=== PATIENT | male | born 1975 | race Caucasian/White ===

== ENCOUNTER 2016-11-18 14:17 | Inpatient (IN) | payer OTHER ==
[2016-11-18 15:39] VITALS: BMI 28.3
--- NOTE | 2016-11-18 18:06 | HP ---
CIWA Score - CIWA Score Nausea/Vomitin-Mild Nausea/No Vomiting Muscle Tremors: 4-Moderate,w/Arms Extend Anxiety: 4-Mod. Anxious/Guarded Agitation: 4-Moderately Restless Paroxysmal Sweats: 1-Minimal Palms Moist Orientation: 3-Disoriented Date>2 days Tacttile Disturbances: 0-None Auditory Disturbances: 0-None Visual Disturbances: 0-None Headache: 0-None Present CIWA-Ar Total Score: 17 Admission ROS S - HPI Chief Complaint: WITHDRAWAL SX Allergies/Adverse Reactions: Allergies Allergy/AdvReac Type Severity Reaction Status Date / Time No Known Allergies Allergy Verified 11/18/16 16:46 History of Present Illness: 41 YEARS OLD MALE WITH LONG HISTORY OF ALCOHOL XANAX NICOTINE DEPENDENCE HAS ASTHMA AND DEPRESSION ANXIETY IS ADMITTED TO DETOX Exam Limitations: No Limitations - Ebola screening Have you traveled outside of the country in the last 21 days: No Have you had contact with anyone from an Ebola affected area: No Have you been sick,other than usual withdrawal symptoms: No Do you have a fever: No - Review of Systems Constitutional: Chills, Changes in sleep, Weight Stable EENT: reports: No Symptoms Reported Respiratory: reports: Cough, SOB with Exertion Cardiac: reports: No Symptoms Reported GI: reports: Nausea, Poor Fluid Intake, Abdominal cramping : reports: No Symptoms Reported Musculoskeletal: reports: Back Pain, Joint Pain, Muscle Pain Integumentary: reports: No Symptoms Reported Neuro: reports: Seizure (2011 XANAX WITHDRAWAL), Tremors Endocrine: reports: No Symptoms Reported Hematology: reports: No Symptoms Reported Psychiatric: reports: Judgement Intact, Anxious, Depressed Other Systems: Reviewed and Negative Patient History - Patient Medical History Hx Anemia: No Hx Asthma: No Hx Chronic Obstructive Pulmonary Disease (COPD): No Hx Cancer: No Hx Cardiac Disorders: No Hx Congestive Heart Failure: No Hx Hypertension: No Hx Hypercholesterolemia: No Hx Pacemaker: No HX Cerebrovascular Accident: No Hx Seizures: No Hx Dementia: No Hx Diabetes: No Hx Gastrointestinal Disorders: No Hx Liver Disease: No Hx Genitourinary Disorders: No Hx Sexually Transmitted Disorders: No Hx Renal Disease (ESRD): No Hx Thyroid Disease: No Hx Human Immunodeficiency Virus (HIV): No (2013 NEGATIVE) Hx Hepatitis C: No Hx Depression: Yes Hx Suicide Attempt: Yes (Tried to overdose more than 10 yrs ago. 2006) Hx Bipolar Disorder: No Hx Schizophrenia: No - Patient Surgical History Past Surgical History: Yes Hx Neurologic Surgery: No Hx Cataract Extraction: No Hx Cardiac Surgery: No Hx Lung Surgery: No Hx Breast Surgery: No Hx Breast Biopsy: No Hx Abdominal Surgery: No Hx Appendectomy: No Hx Cholecystectomy: No Hx Genitourinary Surgery: No Hx Orthopedic Surgery: Yes (left ankle IN 2011) Anesthesia Reaction: No - PPD History Previous Implant?: Yes Documented Results: Negative w/proof Implanted On Prior [facility] Admission?: Yes Date: 03/28/16 Results: 0 MM PPD to be Administered?: No - Smoking Cessation Smoking history: Current every day smoker Have you smoked in the past 12 months: Yes Aproximately how many cigarettes per day: 8 Cigars Per Day: 0 Hx Chewing Tobacco Use: No Initiated information on smoking cessation: Yes 'Breaking Loose' booklet given: 11/18/16 - Substance & Tx. History Hx Alcohol Use: Yes Hx Substance Use: Yes Substance Use Type: Alcohol, Tranquilizers Hx Substance Use Treatment: Yes - Substances Abused Alprazolam (Xanax) Route: Oral Frequency: Daily Amount used: 10MG Age of first use: 35 Date of Last Use: 11/17/16 Alcohol Route: Oral Frequency: Daily Amount used: 2 6PKS [id number] Age of first use: 17 Date of Last Use: 11/15/16 Marijuana/Hashish Route: Smoking Frequency: Daily Amount used: $20 Age of first use: 18 Date of Last Use: 11/17/16 Family Disease History - Family Disease History Family Disease History: Diabetes: Mother (), Heart Disease: Mother, CA: Father (ALCOHOL,DSA,), Other: Father, Mother, Brother (ALCOHOL,DSA), Sister (ALCOHOL,DSA) Admission Physical Exam S - Vital Signs Vital Signs: Vital Signs - 24 hr 11/18/16 15:36 Temperature 96.7 F L Pulse Rate 71 Respiratory 18 Rate Blood Pressure 117/76 - Physical General Appearance: Yes: Nourished, Appropriately Dressed, Mild Distress, Tremorous, Irritable, Sweating, Anxious HEENTM: Yes: Hearing grossly Normal, Normal ENT Inspection, Normocephalic, Normal Voice Respiratory: Yes: Chest Non-Tender, Lungs Clear, Normal Breath Sounds, No Respiratory Distress, No Accessory Muscle Use Neck: Yes: Supple, Trachea in good position Breast: Yes: Breasts Symetrical Cardiology: Yes: Regular Rhythm, Regular Rate, S1, S2 Abdominal: Yes: Non Tender, Soft Genitourinary: Yes: Within Normal Limits Back: Yes: Normal Inspection Musculoskeletal: Yes: full range of Motion, Gait Steady, Back pain, Muscle Pain (LEFT ANKLE) Extremities: Yes: Normal Range of Motion, Non-Tender, Tremors Neurological: Yes: Alert, Motor Strength 5/5, Normal Response, Depressed Affect Integumentary: Yes: Warm Lymphatic: Yes: Within Normal Limits - Diagnostic (1) Asthma Current Visit: Yes Status: Acute Qualifiers: Asthma severity: mild intermittent Asthma complication type: with status asthmaticus Qualified Code(s): J45.22 - Mild intermittent asthma with status asthmaticus (2) Alcohol dependence with uncomplicated withdrawal Current Visit: Yes Status: Acute (3) Sedative, hypnotic or anxiolytic dependence with withdrawal, uncomplicated Current Visit: Yes Status: Acute (4) Nicotine dependence Current Visit: Yes Status: Acute Qualifiers: Nicotine product type: cigarettes Substance use status: in withdrawal Qualified Code(s): F17.213 - Nicotine dependence, cigarettes, with withdrawal (5) Anxiety associated with depression Current Visit: Yes Status: Suspected Comment: ERIK Cleared for Admission [facility] - Detox or Rehab [facility] Level of Care: Medically Managed Detox Regimen/Protocol: Valium [facility] Breath Alcohol Content Breath Alcohol Content: 0 Urine Drug Screen - Results Drug Screen Negative: No Urine Drug Screen Results: THC-Marijuana, BZO-Benzodiazepines
[2016-11-18] MEDS ORDERED: MAGNESIUM CITRATE 300 ML BOTTLE PO PRN (18:12)
[2016-11-18] MEDS ORDERED: MENTHOL/PHENOL 1 EACH UD MM PRN (18:12)
[2016-11-18] MEDS ORDERED: guaiFENesin/D-METHORPHAN HB 10 ML UNIT-DOSE CUPS PO PRN (18:12)
[2016-11-18] MEDS ORDERED: hydrOXYzine PAMOATE 50 MG CAPSULE (FP) PO PRN (18:12)
[2016-11-18] MEDS ORDERED: IBUPROFEN 400 MG TABLET (FP) PO PRN (18:12)
[2016-11-18] MEDS ORDERED: MAGNESIUM HYDROX 2400MG/30ML ORAL SUSPENSION 30 ML CUP PO PRN (18:12)
[2016-11-18] MEDS ORDERED: P-EPHED 60MG/TRIPROLIDI 2.5MG TABLET PO PRN (18:12)
[2016-11-18] MEDS ORDERED: MAG HYDROX/AL HYDROX/SIMETH 30 ML UNIT-DOSE CUP PO PRN (18:12)
[2016-11-18] MEDS ORDERED: LOPERAMIDE HCL 2 MG CAPSULE PO PRN (18:12)
[2016-11-18] MEDS ORDERED: ACETAMINOPHEN 325 MG TABLET (FP) PO PRN (18:12)
[2016-11-18] MEDS ORDERED: diphenhydrAMINE HCL 50 MG CAPSULE PO PRN (18:12)
[2016-11-18] MEDS ORDERED: NICOTINE POLACRILEX 2 MG GUM BC PRN (18:12)
[2016-11-18] MEDS ORDERED: ALBUTEROL SO4 6.7 GM HFA INHALER IH PRN (18:19)
[2016-11-18] MEDS ORDERED: diazePAM 5 MG TABLET PO ONE (18:30)
[2016-11-18] MEDS: THIAMINE HCL 100 MG TABLET (FP) PO SCH (22:43)
[2016-11-18] MEDS: diazePAM 5 MG TABLET PO SCH (22:44)
[2016-11-19] MEDS: diazePAM 5 MG TABLET PO SCH ×3 (06:10→21:44)
[2016-11-19 10:02] LABS: ALBUMIN 4.3 g/dl (3.4-5.0); ALK PHOS 100 U/L (45-117); ANION GAP 10 (8-16); BILIRUBIN,TOTAL 0.5 mg/dL (0.2-1.0); CALCIUM 9.3 mg/dL (8.5-10.1); CO2 28 mmol/L (21-32); GLUCOSE,RANDOM 113 mg/dL (74-106); SGOT/AST 19 U/L (15-37); SGPT/ALT 29 U/L (12-78); TOT PROT 7.2 g/dl (6.4-8.2)
[2016-11-19 10:03] LABS: MCH 30.1 pg (25.7-33.7); MCHC 33.3 g/dl (32.0-35.9); MEAN CELL VOLUME 90.2 fl (80-96); MEAN PLT VOLUME 10.3 fl (7.5-11.1); PLATELET COUNT 166 K/MM3 (134-434); RDW 13.7 % (11.9-15.9); WHITE BLOOD COUNT 8.7 K/mm3 (4.0-10.0)
--- NOTE | 2016-11-19 10:15 | PN ---
S CIWA - CIWA Score Nausea/Vomitin-No Nausea/No Vomiting Muscle Tremors: 4-Moderate,w/Arms Extend Anxiety: 3 Agitation: 4-Moderately Restless Paroxysmal Sweats: 3 Orientation: 0-Oriented Tacttile Disturbances: 0-None Auditory Disturbances: 0-None Visual Disturbances: 0-None Headache: 1-Very Mild CIWA-Ar Total Score: 15 [facility] Progress Note (SOAP) Subjective: low back pain sweats shakes agitation interrupted sleep Objective: 11/19/16 10:18 Vital Signs Temperature 98 F 11/19/16 10:00 Pulse Rate 57 L 11/19/16 10:00 Respiratory Rate 18 11/19/16 10:00 Blood Pressure 126/84 11/19/16 10:00 O2 Sat by Pulse Oximetry (%) labs pending awake/alert ambulating no acute distress Assessment: 11/19/16 10:18 withdrawal sx Plan: continue detox increase fluids motrin/tylenol prn lidocaine patch labs pending
[2016-11-19] MEDS: diazePAM 5 MG TABLET PO PRN ×2 (10:59→17:47)
[2016-11-19] MEDS: NICOTINE 14 MG/24 HOURS TOPICAL PATCH TD SCH (10:59)
[2016-11-19] MEDS: PRENATAL VITAMINS W/ FOLIC ACID TABLET (FP) PO SCH (10:59)
[2016-11-19] MEDS: LIDOCAINE 5% TOPICAL PATCH TP SCH (11:15)
--- NOTE | 2016-11-19 12:27 | CONSULT ---
[facility] Psychiatric Consult - Data Date of interview: 11/19/16 Admission source: [facility] Identifying data: First admission to [facility] for this 41 y/o male seeking detox treatment for alcohol,xanax and marijuana dependence.Patient is single,a father of one,domiciled,uneployed and supported on [facility] benefits. Substance Abuse History: - Smoking Cessation. Smoking history: Current every day smoker. Have you smoked in the past 12 months: Yes. Aproximately how many cigarettes per day: 8. Cigars Per Day: 0. Hx Chewing Tobacco Use: No. Initiated information on smoking cessation: Yes. 'Breaking Loose' booklet given : 11/18/16. - Substance & Tx. History. Hx Alcohol Use: Yes. Hx Substance Use : Yes. Substance Use Type: Alcohol, Tranquilizers. Hx Substance Use Treatment : Yes. - Substances Abused. Alprazolam (Xanax). Route: Oral. Frequency: Daily. Amount used: 10MG. Age of first use: 35. Date of Last Use: 11/17/16. Alcohol. Route: Oral. Frequency: Daily. Amount used: 2 6PKS [id number]. Age of first use: 17. Date of Last Use: 11/15/16. Marijuana/Hashish. Route : Smoking. Frequency: Daily. Amount used: $20. Age of first use: 18. Date of Last Use: 11/17/16. Confirmed by patient. Medical History: History of bronchial asthma. Psychiatric History: Patient reports a past history of psychiatric hospitalizations at [facility].Diagnosed with MDD.Mr Pitt gets his outpatient psychiatric services at the [facility] in the [place].Prescribed zyprexa 5 mg/hs + ambien 10 mg/hs + xanax (dose not recalled) .Noted self-report of a suicide attempt via overdose with medications in 2006 ( precipitated by the of maternal grandmother). Physical/Sexual Abuse/Trauma History: Patient denies. Additional Comment: Urine Drug Screen Results: THC-Marijuana, BZO- Benzodiazepines.Noted. Mental Status Exam - Mental Status Exam Alert and Oriented to: Time, Place, Person Cognitive Function: Good Patient Appearance: Well Groomed Mood: Hopeful, Euthymic Affect: Appropriate, Normal Range Patient Behavior: Fatigued, Appropriate, Cooperative Speech Pattern: Clear, Appropriate Voice Loudness: Normal Thought Process: Goal Oriented Thought Disorder: Not Present Hallucinations: Denies Suicidal Ideation: Denies Homicidal Ideation: Denies Insight/Judgement: Poor Sleep: Poorly, Difficulty falling asleep Appetite: Good Muscle strength/Tone: Normal Gait/Station: Normal Psychiatric Findings - Problem List ([place] 1, 2,3) (1) Alcohol dependence with uncomplicated withdrawal Current Visit: Yes Status: Acute (2) Sedative, hypnotic or anxiolytic dependence with withdrawal, uncomplicated Current Visit: Yes Status: Acute (3) Cannabis dependence Current Visit: Yes Status: Acute (4) Nicotine dependence Current Visit: Yes Status: Acute Qualifiers: Nicotine product type: cigarettes Substance use status: in withdrawal Qualified Code(s): F17.213 - Nicotine dependence, cigarettes, with withdrawal (5) Bipolar disorder Current Visit: Yes Status: Chronic (6) Asthma Current Visit: Yes Status: Chronic Qualifiers: Asthma severity: mild intermittent Asthma complication type: with status asthmaticus Qualified Code(s): J45.22 - Mild intermittent asthma with status asthmaticus (7) Insomnia Current Visit: Yes Status: Chronic - Initial Treatment Plan Initial Treatment Plan: Psychoeducation.Detoxification.Medications : zyprexa 5 mg po hs + ambien 10 mg po hs.Side effects/benefits of each drug are discussed with the patient.He agrees with plan of care.Observation.Doses verified through review of pharmacy claims (filled scripts for both drugs @ [facility] on 10/31/16).
--- NOTE | 2016-11-19 13:43 | EKG ---
Test Reason : Blood Pressure : / mmHG Vent. Rate : 052 BPM Atrial Rate : 052 BPM P-R Int : 150 ms QRS Dur : 086 ms QT Int : 450 ms P-R-T Axes : 076 066 036 degrees QTc Int : 418 ms SINUS BRADYCARDIA POSSIBLE LEFT ATRIAL ENLARGEMENT NONSPECIFIC ST ABNORMALITY ABNORMAL ECG NO PREVIOUS ECGS AVAILABLE Confirmed by HEIDY VEGA, SOCRATES ([id number]) on 11/19/2016 1:42:47 PM Referred By: Confirmed By:SOCRATES MOODY MD
[2016-11-19] MEDS: OLANZapine 5 MG TABLET PO SCH (21:44)
[2016-11-19] MEDS: THIAMINE HCL 100 MG TABLET (FP) PO SCH (21:44)
[2016-11-19] MEDS: ZOLPIDEM TARTRATE 10 MG TABLET (PARK CARE ONLY) PO PRN (21:44)
[2016-11-20] MEDS: LIDOCAINE 5% TOPICAL PATCH TP SCH (10:12)
[2016-11-20] MEDS: PRENATAL VITAMINS W/ FOLIC ACID TABLET (FP) PO SCH (10:13)
[2016-11-20] MEDS: NICOTINE 14 MG/24 HOURS TOPICAL PATCH TD SCH (10:13)
[2016-11-20] MEDS: diazePAM 5 MG TABLET PO SCH ×2 (10:13→22:09)
--- NOTE | 2016-11-20 10:46 | PN ---
S CIWA - CIWA Score Nausea/Vomitin Muscle Tremors: 2 Anxiety: 2 Agitation: 2 Paroxysmal Sweats: 3 Orientation: 0-Oriented Tacttile Disturbances: 2-Mild Itch/Numbness/Burn Auditory Disturbances: 0-None Visual Disturbances: 0-None Headache: 0-None Present CIWA-Ar Total Score: 13 S Progress Note (SOAP) Subjective: interrupted sleep, sweats, lbp, left ankle pain Objective: 11/20/16 10:44 Vital Signs Temperature 98.4 F 11/20/16 10:00 Pulse Rate 73 11/20/16 10:00 Respiratory Rate 18 11/20/16 10:00 Blood Pressure 125/75 11/20/16 10:00 O2 Sat by Pulse Oximetry (%) Laboratory Tests 11/19/16 11/19/16 11/19/16 06:00 06:00 06:00 WBC 8.7 RBC 4.86 Hgb 14.6 D Hct 43.8 MCV 90.2 MCHC 33.3 RDW 13.7 Plt Count 166 MPV 10.3 Sodium 143 Potassium 4.5 Chloride 105 Carbon Dioxide 28 Anion Gap 10 BUN 17 D Creatinine 1.0 D Creat Clearance w eGFR > 60 Random Glucose 113 H Calcium 9.3 Total Bilirubin 0.5 D AST 19 D ALT 29 Alkaline Phosphatase 100 D Total Protein 7.2 Albumin 4.3 RPR Titer Nonreactive pt aox3 lying in bed Assessment: 11/20/16 10:45 withdrawal sx;s lbp lt ankle pain Plan: cont. detox increase fluids analgesic balm cont lidocaine patch
[2016-11-20] MEDS: diazePAM 5 MG TABLET PO PRN (17:13)
[2016-11-20] MEDS: OLANZapine 5 MG TABLET PO SCH (22:08)
[2016-11-20] MEDS: THIAMINE HCL 100 MG TABLET (FP) PO SCH (22:08)
[2016-11-20] MEDS: METHYL SALICYLATE/MENTHOL OINT 30 GM TUBE TP SCH (22:08)
[2016-11-20] MEDS: ZOLPIDEM TARTRATE 10 MG TABLET (PARK CARE ONLY) PO PRN (22:08)
[2016-11-21] MEDS: diazePAM 5 MG TABLET PO SCH ×2 (10:12→22:05)
[2016-11-21] MEDS: PRENATAL VITAMINS W/ FOLIC ACID TABLET (FP) PO SCH (10:12)
--- NOTE | 2016-11-21 10:22 | PN ---
B[facility] Progress Note (SOAP) Subjective: sweats headache Objective: 11/21/16 10:22 Vital Signs Temperature 97 F L 11/21/16 06:48 Pulse Rate 69 11/21/16 06:48 Respiratory Rate 16 11/21/16 06:48 Blood Pressure 116/72 11/21/16 06:48 O2 Sat by Pulse Oximetry (%) awake/alert ambulating no acute distress Assessment: 11/21/16 10:22 withdrawal sx Plan: continue detox increase fluids tyelnol/motrin prn d/c in am
[2016-11-21] MEDS: NICOTINE 14 MG/24 HOURS TOPICAL PATCH TD SCH (11:50)
[2016-11-21] MEDS: LIDOCAINE 5% TOPICAL PATCH TP SCH (11:50)
[2016-11-21] MEDS: METHYL SALICYLATE/MENTHOL OINT 30 GM TUBE TP SCH ×2 (11:53→22:05)
[2016-11-21] MEDS: diazePAM 5 MG TABLET PO PRN (13:54)
[2016-11-21 20:25] LABS: URINE APPEARANCE CLEAR; URINE BILIRUBIN NEGATIVE (NEGATIVE); URINE BLOOD NEGATIVE (NEGATIVE); URINE COLOR YELLOW; URINE GLUCOSE (UA) NEGATIVE (NEGATIVE); URINE KETONE NEGATIVE (NEGATIVE); URINE LEUK ESTERASE NEGATIVE (NEGATIVE); URINE NITRITE NEGATIVE (NEGATIVE); URINE PROTEIN NEGATIVE (NEGATIVE); URINE UROBILINOGEN NEGATIVE E.U./dl (0.2-1.0)
[2016-11-21] MEDS: ZOLPIDEM TARTRATE 10 MG TABLET (PARK CARE ONLY) PO PRN (22:05)
[2016-11-21] MEDS: OLANZapine 5 MG TABLET PO SCH (22:05)
[2016-11-21] MEDS: THIAMINE HCL 100 MG TABLET (FP) PO SCH (22:05)
[2016-11-22 06:26] VITALS: TEMP 97.5
--- NOTE | 2016-11-22 08:21 | DS ---
[facility] Detox Discharge Summary Admission Date: 11/18/16 Discharge Date: 11/22/16 - History Present History: Alcohol Dependence, Cannabis Dependence, Sedative Dependence - Physical Exam Results Vital Signs: Vital Signs Temperature 97.5 F L 11/22/16 06:00 Pulse Rate 50 L 11/22/16 06:00 Respiratory Rate 18 11/22/16 06:00 Blood Pressure 95/60 11/22/16 06:00 O2 Sat by Pulse Oximetry (%) - Treatment Hospital Course: Detox Protocol Followed, Detoxed Safely, Responded well, Discharged Condition Good, Rehab Referral Accepted - Medication Discharge Medications: Ambulatory Orders Olanzapine [Zyprexa -] 5 mg PO HS #30 tablet 11/19/16 - Diagnosis (1) Alcohol dependence with uncomplicated withdrawal Current Visit: Yes Status: Chronic (2) Cannabis dependence Current Visit: Yes Status: Chronic (3) Nicotine dependence Current Visit: Yes Status: Chronic Qualifiers: Nicotine product type: cigarettes Substance use status: uncomplicated Qualified Code(s): F17.210 - Nicotine dependence, cigarettes, uncomplicated (4) Sedative, hypnotic or anxiolytic dependence with withdrawal, uncomplicated Current Visit: Yes Status: Chronic (5) Asthma Current Visit: Yes Status: Chronic Qualifiers: Asthma severity: mild intermittent Asthma complication type: uncomplicated Qualified Code(s): J45.20 - Mild intermittent asthma, uncomplicated (6) Bipolar disorder Current Visit: Yes Status: Chronic (7) Insomnia Current Visit: Yes Status: Chronic (8) Anxiety associated with depression Current Visit: Yes Status: Suspected - AMA Did Patient Leave Against Medical Advice: No
[2016-11-22] MEDS ORDERED: diazePAM 5 MG TABLET PO SCH (10:00)
[2016-11-22 10:28] VITALS: BP 118/88; PULSE 73
== END 2016-11-22 09:50 | disposition home or self-care (01) | DRG 897 ==
LOC: YASAS 14:17 → Y6N 17:15
PROVIDERS: ADMIT Internal Medicine Addiction Medicine; ATTEND Internal Medicine Addiction Medicine
PROC: HZ2ZZZZ Detoxification Services for Substance Abuse Treatment (ICD-10-PCS; principal; 2016-11-18)
DX: F13.230 Sedative, hypnotic or anxiolytic dependence with withdrawal, uncomplicated (principal); F10.230 Alcohol dependence with withdrawal, uncomplicated; F12.20 Cannabis dependence, uncomplicated; F17.210 Nicotine dependence, cigarettes, uncomplicated; F31.9 Bipolar disorder, unspecified; F41.8 Other specified anxiety disorders; J45.20 Mild intermittent asthma, uncomplicated; G47.00 Insomnia, unspecified; M54.5 Low back pain; M25.572 Pain in left ankle and joints of left foot; Z91.5 Personal history of self-harm
CPT/HCPCS: 36415; 80053; 81003; 85027; 86593; 93005; 93010

== ENCOUNTER 2016-12-27 10:34 | Inpatient (IN) | payer OTHER ==
[2016-12-27 12:03] VITALS: BMI 26.6
--- NOTE | 2016-12-27 14:10 | HP ---
CIWA Score - CIWA Score Nausea/Vomitin-No Nausea/No Vomiting Muscle Tremors: 4-Moderate,w/Arms Extend Anxiety: 3 Agitation: 4-Moderately Restless Paroxysmal Sweats: 3 Orientation: 0-Oriented Tacttile Disturbances: 0-None Auditory Disturbances: 0-None Visual Disturbances: 0-None Headache: 1-Very Mild CIWA-Ar Total Score: 15 Admission ROS [facility] - HPI Chief Complaint: i need help. Allergies/Adverse Reactions: Allergies Allergy/AdvReac Type Severity Reaction Status Date / Time No Known Allergies Allergy Verified 12/27/16 12:09 History of Present Illness: pt is a 41yr old male with a history of xanax and cannabis dependence seeking detox for treatment. Exam Limitations: No Limitations - Ebola screening Have you traveled outside of the country in the last 21 days: No Have you had contact with anyone from an Ebola affected area: No Have you been sick,other than usual withdrawal symptoms: No Do you have a fever: No - Review of Systems Constitutional: Chills, Diaphoresis, Loss of Appetite, Night Sweats EENT: reports: No Symptoms Reported Respiratory: reports: No Symptoms reported, Productive cough Cardiac: reports: No Symptoms Reported GI: reports: Nausea, Poor Appetite, Poor Fluid Intake, Indigestion : reports: No Symptoms Reported Musculoskeletal: reports: Muscle Pain Integumentary: reports: Flushing, Sweating Neuro: reports: Headache, Tingling, Tremors Endocrine: reports: Excessive Sweating, Flushing, Intolerance to Cold, Intolerance to Heat Hematology: reports: No Symptoms Reported Psychiatric: reports: Mood/Affect Appropiate, Orientated x3, Agitated, Anxious Other Systems: Reviewed and Negative Patient History - Patient Medical History Hx Anemia: No Hx Asthma: Yes Hx Chronic Obstructive Pulmonary Disease (COPD): No Hx Cancer: No Hx Cardiac Disorders: No Hx Congestive Heart Failure: No Hx Hypertension: No Hx Hypercholesterolemia: No Hx Pacemaker: No HX Cerebrovascular Accident: No Hx Seizures: No Hx Dementia: No Hx Diabetes: No Hx Gastrointestinal Disorders: No Hx Liver Disease: No Hx Genitourinary Disorders: No Hx Sexually Transmitted Disorders: No Hx Renal Disease (ESRD): No Hx Thyroid Disease: No Hx Human Immunodeficiency Virus (HIV): No (2013 NEGATIVE) Hx Hepatitis C: No Hx Depression: Yes Hx Suicide Attempt: No Hx Bipolar Disorder: Yes Hx Schizophrenia: No - Patient Surgical History Past Surgical History: Yes Hx Neurologic Surgery: No Hx Cataract Extraction: No Hx Cardiac Surgery: No Hx Lung Surgery: No Hx Breast Surgery: No Hx Breast Biopsy: No Hx Abdominal Surgery: No Hx Appendectomy: No Hx Cholecystectomy: No Hx Genitourinary Surgery: No Hx Orthopedic Surgery: Yes (left ankle IN 2010) Anesthesia Reaction: No - PPD History Previous Implant?: Yes Documented Results: Negative w/proof Implanted On Prior [facility] Admission?: Yes Date: 03/28/16 Results: 0 mm PPD to be Administered?: No - Reproductive History Patient is a Female of Child Bearing Age (11 -55 yrs old): No - Smoking Cessation Smoking history: Current every day smoker Have you smoked in the past 12 months: Yes Aproximately how many cigarettes per day: 6 Cigars Per Day: 0 Hx Chewing Tobacco Use: No Initiated information on smoking cessation: Yes 'Breaking Loose' booklet given: 12/27/16 - Substance & Tx. History Hx Alcohol Use: No Hx Substance Use: Yes Substance Use Type: Marijuana, Tranquilizers Hx Substance Use Treatment: No - Substances Abused Xanax Route: Oral Frequency: Daily Amount used: 6-8 mg. Age of first use: 39 Date of Last Use: 12/27/16 Marijuana Route: Smoking Frequency: Daily Amount used: 2-4 blunts Age of first use: 14 Date of Last Use: 12/27/16 Family Disease History - Family Disease History Family Disease History: Diabetes: Mother (), Heart Disease: Mother, CA: Father (ALCOHOL,DSA,), Other: Father, Mother, Brother (ALCOHOL,DSA), Sister (ALCOHOL,DSA) Admission Physical Exam S - Vital Signs Vital Signs: Vital Signs - 24 hr 12/27/16 12:01 Temperature 96 F L Pulse Rate 91 H Respiratory 20 Rate Blood Pressure 140/95 - Physical General Appearance: Yes: Appropriately Dressed, Moderate Distress, Tremorous, Irritable, Sweating, Anxious HEENTM: Yes: Normal Voice Respiratory: Yes: Lungs Clear, Normal Breath Sounds, No Respiratory Distress Neck: Yes: No masses,lesions,Nodules Breast: Yes: Within Normal Limits Cardiology: Yes: Regular Rhythm, Regular Rate, S1, S2 Abdominal: Yes: Normal Bowel Sounds Genitourinary: Yes: Within Normal Limits Back: Yes: Normal Inspection Musculoskeletal: Yes: full range of Motion Extremities: Yes: Normal Inspection, Tremors Neurological: Yes: Fully Oriented, Alert Integumentary: Yes: Normal Color, Diaphoresis Lymphatic: Yes: Within Normal Limits - Diagnostic (1) Asthma Current Visit: Yes Status: Chronic Qualifiers: Asthma severity: mild intermittent Asthma complication type: uncomplicated Qualified Code(s): J45.20 - Mild intermittent asthma, uncomplicated (2) Cannabis dependence Current Visit: Yes Status: Chronic (3) Sedative, hypnotic or anxiolytic dependence with withdrawal, uncomplicated Current Visit: Yes Status: Chronic Cleared for Admission [facility] - Detox or Rehab [facility] Level of Care: Medically Managed Detox Regimen/Protocol: Valium [facility] Breath Alcohol Content Breath Alcohol Content: 0 Urine Drug Screen - Results Drug Screen Negative: No Urine Drug Screen Results: THC-Marijuana, BZO-Benzodiazepines
[2016-12-27] MEDS ORDERED: MAGNESIUM CITRATE 300 ML BOTTLE PO PRN (14:25)
[2016-12-27] MEDS ORDERED: diphenhydrAMINE HCL 50 MG CAPSULE PO PRN (14:25)
[2016-12-27] MEDS ORDERED: hydrOXYzine PAMOATE 50 MG CAPSULE (FP) PO PRN (14:25)
[2016-12-27] MEDS ORDERED: MAGNESIUM HYDROX 2400MG/30ML ORAL SUSPENSION 30 ML CUP PO PRN (14:25)
[2016-12-27] MEDS ORDERED: MENTHOL/PHENOL 1 EACH UD MM PRN (14:25)
[2016-12-27] MEDS ORDERED: MAG HYDROX/AL HYDROX/SIMETH 30 ML UNIT-DOSE CUP PO PRN (14:25)
[2016-12-27] MEDS ORDERED: IBUPROFEN 400 MG TABLET (FP) PO PRN (14:25)
[2016-12-27] MEDS ORDERED: LOPERAMIDE HCL 2 MG CAPSULE PO PRN (14:25)
[2016-12-27] MEDS ORDERED: P-EPHED 60MG/TRIPROLIDI 2.5MG TABLET PO PRN (14:25)
[2016-12-27] MEDS ORDERED: ACETAMINOPHEN 325 MG TABLET (FP) PO PRN (14:25)
[2016-12-27] MEDS ORDERED: guaiFENesin/D-METHORPHAN HB 10 ML UNIT-DOSE CUPS PO PRN (14:25)
[2016-12-27] MEDS ORDERED: NICOTINE POLACRILEX 4 MG GUM BUC PRN (14:25)
[2016-12-27] MEDS ORDERED: diazePAM 5 MG TABLET PO ONE (14:30)
[2016-12-27] MEDS: diazePAM 5 MG TABLET PO SCH ×2 (14:49→22:03)
[2016-12-27] MEDS ORDERED: ALBUTEROL SO4 2.5/IPRATROPIUM 0.5 INH SOL 3 ML VIAL.NEB. NEB PRN (15:19)
[2016-12-27] MEDS ORDERED: ALBUTEROL SO4 2.5/IPRATROPIUM 0.5 INH SOL 3 ML VIAL.NEB. NEB ONE (15:26)
[2016-12-27] MEDS: THIAMINE HCL 100 MG TABLET (FP) PO SCH (22:03)
[2016-12-28] MEDS: diazePAM 5 MG TABLET PO SCH ×3 (06:01→22:03)
[2016-12-28] MEDS: diazePAM 5 MG TABLET PO PRN ×2 (08:50→17:14)
--- NOTE | 2016-12-28 09:14 | EKG ---
Test Reason : Blood Pressure : / mmHG Vent. Rate : 056 BPM Atrial Rate : 056 BPM P-R Int : 144 ms QRS Dur : 088 ms QT Int : 454 ms P-R-T Axes : 053 052 003 degrees QTc Int : 438 ms SINUS BRADYCARDIA WITH SINUS ARRHYTHMIA OTHERWISE NORMAL ECG WHEN COMPARED WITH ECG OF 18-NOV-2016 18:42, NO SIGNIFICANT CHANGE WAS FOUND Confirmed by BRENNON DENTON MD ([id number]) on 12/28/2016 9:14:23 AM Referred By: Confirmed By:BRENNON DENTON MD
[2016-12-28 10:07] LABS: MCH 30.6 pg (25.7-33.7); MCHC 34.5 g/dl (32.0-35.9); MEAN CELL VOLUME 88.6 fl (80-96); MEAN PLT VOLUME 9.7 fl (7.5-11.1); PLATELET COUNT 162 K/MM3 (134-434); RDW 13.1 % (11.9-15.9)
[2016-12-28] MEDS: NICOTINE 21 MG/24 HOURS TOPICAL PATCH TD SCH (10:09)
[2016-12-28] MEDS: PRENATAL VITAMINS W/ FOLIC ACID TABLET (FP) PO SCH (10:09)
[2016-12-28 10:30] LABS: ANION GAP 9 (8-16); BILIRUBIN,TOTAL 0.3 mg/dL (0.2-1.0); CALCIUM 8.8 mg/dL (8.5-10.1); CO2 25 mmol/L (21-32); COCKROFT - GAULT 141.74; CREATININE 0.8 mg/dL (0.7-1.3); GLUCOSE,RANDOM 120 mg/dL (74-106); SGOT/AST 23 U/L (15-37); SGPT/ALT 39 U/L (12-78); TOT PROT 6.7 g/dl (6.4-8.2)
[2016-12-28 10:31] LABS: ALK PHOS 103 U/L (45-117)
--- NOTE | 2016-12-28 14:47 | PN ---
[facility] CIWA - CIWA Score Nausea/Vomitin-No Nausea/No Vomiting Muscle Tremors: 4-Moderate,w/Arms Extend Anxiety: 2 Agitation: 3 Paroxysmal Sweats: 2 Orientation: 0-Oriented Tacttile Disturbances: 2-Mild Itch/Numbness/Burn Auditory Disturbances: 2-Mild Harshness/Frighten Visual Disturbances: 0-None Headache: 3-Moderate CIWA-Ar Total Score: 18 S Progress Note (SOAP) Subjective: Interrupted sleep, Tremors, H/A, Back Ache, Body Aches. Objective: PT. A & O X 3, OBSERVED AMBULATING ON UNIT. PT. DENIES CHEST PAIN. 12/28/16 14:39 Vital Signs Temperature 96.5 F L 12/28/16 10:49 Pulse Rate 86 12/28/16 10:49 Respiratory Rate 16 12/28/16 10:49 Blood Pressure 118/82 12/28/16 10:49 O2 Sat by Pulse Oximetry (%) Laboratory Last Values WBC 10.0 K/mm3 (4.0-10.0) 12/28/16 06:10 RBC 4.56 M/mm3 (4.00-5.60) 12/28/16 06:10 Hgb 13.9 GM/dL (11.7-16.9) 12/28/16 06:10 Hct 40.4 % (35.4-49) 12/28/16 06:10 MCV 88.6 fl (80-96) 12/28/16 06:10 MCHC 34.5 g/dl (32.0-35.9) 12/28/16 06:10 RDW 13.1 % (11.9-15.9) 12/28/16 06:10 Plt Count 162 K/MM3 (134-434) 12/28/16 06:10 MPV 9.7 fl (7.5-11.1) 12/28/16 06:10 Sodium 141 mmol/L (136-145) 12/28/16 06:10 Potassium 3.9 mmol/L (3.5-5.1) 12/28/16 06:10 Chloride 107 mmol/L (98-107) 12/28/16 06:10 Carbon Dioxide 25 mmol/L (21-32) 12/28/16 06:10 Anion Gap 9 (8-16) 12/28/16 06:10 BUN 14 mg/dL (7-18) 12/28/16 06:10 Creatinine 0.8 mg/dL (0.7-1.3) 12/28/16 06:10 Creat Clearance w eGFR > 60 (>60) 12/28/16 06:10 Random Glucose 120 mg/dL (74-106) H 12/28/16 06:10 Calcium 8.8 mg/dL (8.5-10.1) 12/28/16 06:10 Total Bilirubin 0.3 mg/dL (0.2-1.0) D 12/28/16 06:10 AST 23 U/L (15-37) D 12/28/16 06:10 ALT 39 U/L (12-78) D 12/28/16 06:10 Alkaline Phosphatase 103 U/L (45-117) 12/28/16 06:10 Total Protein 6.7 g/dl (6.4-8.2) 12/28/16 06:10 Albumin 4.0 g/dl (3.4-5.0) 12/28/16 06:10 RPR Titer Nonreactive (NONREACTIVE) 12/28/16 06:10 LABS NOTED. Assessment: 12/28/16 14:51 WITHDRAWAL SYMPTOMS. Plan: CONTINUE DETOX. ADVISED PATIENT TO FOLLOW-UP WITH [facility] / REHAB MEDICAL PROVIDER AFTER DISCHARGE FROM DETOX FOR GENERAL MEDICAL ASSESSMENT AND FOR ABNORMAL LAB VALUES.
--- NOTE | 2016-12-28 15:07 | CONSULT ---
[facility] Psychiatric Consult - Data Date of interview: 12/28/16 Admission source: [facility] Identifying data: Readmission to [facility] for this 41 y/o male seeking detox treatment for alcohol,xanax and marijuana dependence.Patient is single,a father of one,domiciled,unemployed and supported on [employer] benefits. Substance Abuse History: - Smoking Cessation. Smoking history: Current every day smoker. Have you smoked in the past 12 months: Yes. Aproximately how many cigarettes per day: 6. Cigars Per Day: 0. Hx Chewing Tobacco Use: No. Initiated information on smoking cessation: Yes. 'Breaking Loose' booklet given : 12/27/16. - Substance & Tx. History. Hx Alcohol Use: No. Hx Substance Use: Yes. Substance Use Type: Marijuana, Tranquilizers. Hx Substance Use Treatment : No. - Substances Abused. Xanax. Route: Oral. Frequency: Daily. Amount used: 6-8 mg. Age of first use: 39. Date of Last Use: 12/27/16. Marijuana. Route: Smoking. Frequency: Daily. Amount used: 2-4 blunts. Age of first use: 14. Date of Last Use: 12/27/16. Confirmed by patient. Medical History: Bronchial asthma. Psychiatric History: History of psychiatric hospitalizations at [facility].Diagnosed with MDD.Mr Pitt gets his outpatient psychiatric services at the [facility] in the [place].Prescribed zyprexa 5 mg/hs + ambien 10 mg/hs + xanax (dose not recalled).Non adherernt to OPD care.History of a suicide attempt via overdose with medications in 2006 (precipitated by the of maternal grandmother). Physical/Sexual Abuse/Trauma History: Patient denies. Mental Status Exam - Mental Status Exam Alert and Oriented to: Time, Place, Person Cognitive Function: Good Patient Appearance: Well Groomed Mood: Hopeful, Euthymic Affect: Appropriate, Normal Range Patient Behavior: Appropriate, Cooperative Speech Pattern: Clear Voice Loudness: Normal Thought Process: Goal Oriented Thought Disorder: Not Present Hallucinations: Denies Suicidal Ideation: Denies Homicidal Ideation: Denies Insight/Judgement: Poor Sleep: Poorly, Difficulty falling asleep Appetite: Good Muscle strength/Tone: Normal Gait/Station: Normal Psychiatric Findings - Problem List ([place] 1, 2,3) (1) Cannabis dependence Current Visit: Yes Status: Acute (2) Sedative, hypnotic or anxiolytic dependence with withdrawal, uncomplicated Current Visit: Yes Status: Acute (3) Nicotine dependence Current Visit: Yes Status: Acute Qualifiers: Nicotine product type: cigarettes Substance use status: uncomplicated Qualified Code(s): F17.210 - Nicotine dependence, cigarettes, uncomplicated (4) Bipolar disorder Current Visit: Yes Status: Chronic (5) Asthma Current Visit: Yes Status: Chronic Qualifiers: Asthma severity: mild intermittent Asthma complication type: uncomplicated Qualified Code(s): J45.20 - Mild intermittent asthma, uncomplicated (6) Insomnia Current Visit: Yes Status: Chronic - Initial Treatment Plan Initial Treatment Plan: Psychoeducation.Detoxification.Medications : zyprexa 5 mg po hs + ambien 10 mg po hs.Patient is made aware of the risk for metabolic syndrome (zyprexa) and parasomnias (ambien).He is in agreement with this careplan.Observation.
[2016-12-28] MEDS: THIAMINE HCL 100 MG TABLET (FP) PO SCH (22:03)
[2016-12-28] MEDS: ZOLPIDEM TARTRATE 5 MG TABLET PO PRN (22:04)
[2016-12-28] MEDS: OLANZapine 5 MG TABLET PO SCH (22:04)
[2016-12-29] MEDS: diazePAM 5 MG TABLET PO PRN ×2 (05:47→17:28)
[2016-12-29] MEDS: PRENATAL VITAMINS W/ FOLIC ACID TABLET (FP) PO SCH (10:22)
[2016-12-29] MEDS: NICOTINE 21 MG/24 HOURS TOPICAL PATCH TD SCH (10:23)
[2016-12-29] MEDS: diazePAM 5 MG TABLET PO SCH ×2 (10:23→22:06)
--- NOTE | 2016-12-29 12:27 | PN ---
S CIWA - CIWA Score Nausea/Vomitin-Mild Nausea/No Vomiting Muscle Tremors: 4-Moderate,w/Arms Extend Anxiety: 4-Mod. Anxious/Guarded Agitation: 3 Paroxysmal Sweats: No Perspiration Orientation: 0-Oriented Tacttile Disturbances: 1-Very Mild Itch/Numbness Auditory Disturbances: 0-None Visual Disturbances: 0-None Headache: 2-Mild CIWA-Ar Total Score: 15 BHS Progress Note (SOAP) Subjective: Nausea, sweating, tremor, interrupted sleep Objective: 12/29/16 12:25 Last Vital Signs Temp Pulse Resp BP Pulse Ox 96.4 F L 81 18 127/88 12/29/16 09:19 12/29/16 09:19 12/29/16 09:19 12/29/16 09:19 Laboratory Tests 12/28/16 12/28/16 12/28/16 06:10 06:10 06:10 WBC 10.0 RBC 4.56 Hgb 13.9 Hct 40.4 MCV 88.6 MCHC 34.5 RDW 13.1 Plt Count 162 MPV 9.7 Sodium 141 Potassium 3.9 Chloride 107 Carbon Dioxide 25 Anion Gap 9 BUN 14 Creatinine 0.8 Creat Clearance w eGFR > 60 Random Glucose 120 H Calcium 8.8 Total Bilirubin 0.3 D AST 23 D ALT 39 D Alkaline Phosphatase 103 Total Protein 6.7 Albumin 4.0 RPR Titer Nonreactive Labs noted: serum glucose 120 Assessment: 12/29/16 12:26 Withdrawal symptoms Noted with hyperglycemia Plan: Continue detox Hyperglycemia: POC glucose testing
[2016-12-29] MEDS: THIAMINE HCL 100 MG TABLET (FP) PO SCH (22:06)
[2016-12-29] MEDS: ZOLPIDEM TARTRATE 5 MG TABLET PO PRN (22:06)
[2016-12-29] MEDS: OLANZapine 5 MG TABLET PO SCH (22:06)
[2016-12-30] MEDS: diazePAM 5 MG TABLET PO PRN ×2 (08:26→13:32)
[2016-12-30] MEDS: NICOTINE 21 MG/24 HOURS TOPICAL PATCH TD SCH (10:12)
[2016-12-30] MEDS: PRENATAL VITAMINS W/ FOLIC ACID TABLET (FP) PO SCH (10:12)
[2016-12-30] MEDS: diazePAM 5 MG TABLET PO SCH ×2 (10:13→22:04)
--- NOTE | 2016-12-30 14:04 | PN ---
[facility]HS Progress Note (SOAP) Subjective: Sweating,interrupted sleep,restless Objective: 12/30/16 14:03 Vital Signs - 8 hr 12/30/16 12/30/16 09:17 13:11 Temperature 98.6 F 98.0 F Pulse Rate 93 H 94 H Respiratory 18 20 Rate Blood Pressure 121/83 135/93 Laboratory Last Values WBC 10.0 K/mm3 (4.0-10.0) 12/28/16 06:10 RBC 4.56 M/mm3 (4.00-5.60) 12/28/16 06:10 Hgb 13.9 GM/dL (11.7-16.9) 12/28/16 06:10 Hct 40.4 % (35.4-49) 12/28/16 06:10 MCV 88.6 fl (80-96) 12/28/16 06:10 MCHC 34.5 g/dl (32.0-35.9) 12/28/16 06:10 RDW 13.1 % (11.9-15.9) 12/28/16 06:10 Plt Count 162 K/MM3 (134-434) 12/28/16 06:10 MPV 9.7 fl (7.5-11.1) 12/28/16 06:10 Sodium 141 mmol/L (136-145) 12/28/16 06:10 Potassium 3.9 mmol/L (3.5-5.1) 12/28/16 06:10 Chloride 107 mmol/L (98-107) 12/28/16 06:10 Carbon Dioxide 25 mmol/L (21-32) 12/28/16 06:10 Anion Gap 9 (8-16) 12/28/16 06:10 BUN 14 mg/dL (7-18) 12/28/16 06:10 Creatinine 0.8 mg/dL (0.7-1.3) 12/28/16 06:10 Creat Clearance w eGFR > 60 (>60) 12/28/16 06:10 Random Glucose 120 mg/dL (74-106) H 12/28/16 06:10 Calcium 8.8 mg/dL (8.5-10.1) 12/28/16 06:10 Total Bilirubin 0.3 mg/dL (0.2-1.0) D 12/28/16 06:10 AST 23 U/L (15-37) D 12/28/16 06:10 ALT 39 U/L (12-78) D 12/28/16 06:10 Alkaline Phosphatase 103 U/L (45-117) 12/28/16 06:10 Total Protein 6.7 g/dl (6.4-8.2) 12/28/16 06:10 Albumin 4.0 g/dl (3.4-5.0) 12/28/16 06:10 RPR Titer Nonreactive (NONREACTIVE) 12/28/16 06:10 labs noted Assessment: 12/30/16 14:03 Withdrawal sx. Plan: Continue detox
[2016-12-30] MEDS: OLANZapine 5 MG TABLET PO SCH (22:04)
[2016-12-30] MEDS: ZOLPIDEM TARTRATE 5 MG TABLET PO PRN (22:04)
[2016-12-30] MEDS: THIAMINE HCL 100 MG TABLET (FP) PO SCH (22:04)
[2016-12-31] MEDS: PRENATAL VITAMINS W/ FOLIC ACID TABLET (FP) PO SCH (09:08)
[2016-12-31] MEDS: NICOTINE 21 MG/24 HOURS TOPICAL PATCH TD SCH (09:09)
--- NOTE | 2016-12-31 09:30 | DS ---
[facility] Detox Discharge Summary Admission Date: 12/27/16 Discharge Date: 12/31/16 - History Present History: Cannabis Dependence, Sedative Dependence Pertinent Past History: Asthma - Physical Exam Results Vital Signs: Vital Signs Temperature 96.1 F L 12/31/16 06:37 Pulse Rate 91 H 12/31/16 06:37 Respiratory Rate 16 12/31/16 06:37 Blood Pressure 136/88 12/31/16 06:37 O2 Sat by Pulse Oximetry (%) Pertinent Admission Physical Exam Findings: Withdrawal sx. Laboratory Last Values WBC 10.0 K/mm3 (4.0-10.0) 12/28/16 06:10 RBC 4.56 M/mm3 (4.00-5.60) 12/28/16 06:10 Hgb 13.9 GM/dL (11.7-16.9) 12/28/16 06:10 Hct 40.4 % (35.4-49) 12/28/16 06:10 MCV 88.6 fl (80-96) 12/28/16 06:10 MCHC 34.5 g/dl (32.0-35.9) 12/28/16 06:10 RDW 13.1 % (11.9-15.9) 12/28/16 06:10 Plt Count 162 K/MM3 (134-434) 12/28/16 06:10 MPV 9.7 fl (7.5-11.1) 12/28/16 06:10 Sodium 141 mmol/L (136-145) 12/28/16 06:10 Potassium 3.9 mmol/L (3.5-5.1) 12/28/16 06:10 Chloride 107 mmol/L (98-107) 12/28/16 06:10 Carbon Dioxide 25 mmol/L (21-32) 12/28/16 06:10 Anion Gap 9 (8-16) 12/28/16 06:10 BUN 14 mg/dL (7-18) 12/28/16 06:10 Creatinine 0.8 mg/dL (0.7-1.3) 12/28/16 06:10 Creat Clearance w eGFR > 60 (>60) 12/28/16 06:10 Random Glucose 120 mg/dL (74-106) H 12/28/16 06:10 Calcium 8.8 mg/dL (8.5-10.1) 12/28/16 06:10 Total Bilirubin 0.3 mg/dL (0.2-1.0) D 12/28/16 06:10 AST 23 U/L (15-37) D 12/28/16 06:10 ALT 39 U/L (12-78) D 12/28/16 06:10 Alkaline Phosphatase 103 U/L (45-117) 12/28/16 06:10 Total Protein 6.7 g/dl (6.4-8.2) 12/28/16 06:10 Albumin 4.0 g/dl (3.4-5.0) 12/28/16 06:10 Urine Color Cancelled 12/27/16 14:00 Urine Appearance Cancelled 12/27/16 14:00 Urine pH Cancelled 12/27/16 14:00 Ur Specific [place] Cancelled 12/27/16 14:00 Urine Protein Cancelled 12/27/16 14:00 Urine Glucose (UA) Cancelled 12/27/16 14:00 Urine Clinitest Cancelled 12/27/16 14:00 Urine Ketones Cancelled 12/27/16 14:00 Urine Blood Cancelled 12/27/16 14:00 Urine Nitrite Cancelled 12/27/16 14:00 Urine Bilirubin Cancelled 12/27/16 14:00 Urine Ictotest Cancelled 12/27/16 14:00 Prot Sulfosalicylic Acd Cancelled 12/27/16 14:00 Urine Urobilinogen Cancelled 12/27/16 14:00 Ur Leukocyte Esterase Cancelled 12/27/16 14:00 RPR Titer Nonreactive (NONREACTIVE) 12/28/16 06:10 labs noted - Treatment Hospital Course: Detox Protocol Followed, Detoxed Safely, Responded well, Discharged Condition Good, Rehab Referral Accepted Patient has Accepted a Rehab Referral to: [facility] - Medication Discharge Medications: Ambulatory Orders Fluoxetine HCl [Prozac -] 10 mg PO DAILY 12/27/16 Olanzapine [Zyprexa -] 5 mg PO HS 12/27/16 Olanzapine [Zyprexa -] 5 mg PO HS #30 tablet 12/28/16 - Diagnosis (1) Cannabis dependence Current Visit: Yes Status: Acute (2) Nicotine dependence Current Visit: Yes Status: Acute Qualifiers: Nicotine product type: cigarettes Substance use status: uncomplicated Qualified Code(s): F17.210 - Nicotine dependence, cigarettes, uncomplicated (3) Sedative, hypnotic or anxiolytic dependence with withdrawal, uncomplicated Current Visit: Yes Status: Acute (4) Asthma Current Visit: Yes Status: Chronic Qualifiers: Asthma severity: mild intermittent Asthma complication type: uncomplicated Qualified Code(s): J45.20 - Mild intermittent asthma, uncomplicated (5) Bipolar disorder Current Visit: Yes Status: Chronic (6) Insomnia Current Visit: Yes Status: Chronic - AMA Did Patient Leave Against Medical Advice: No
[2016-12-31] MEDS ORDERED: diazePAM 5 MG TABLET PO SCH (10:00)
[2016-12-31 17:53] VITALS: BP 117/80; PULSE 115; TEMP 97.5
== END 2016-12-31 18:15 | disposition other institution (70) | DRG 897 ==
LOC: YASAS 10:34 → Y3N 13:57
PROVIDERS: ADMIT Internal Medicine; ATTEND Internal Medicine
PROC: HZ2ZZZZ Detoxification Services for Substance Abuse Treatment (ICD-10-PCS; principal; 2016-12-27)
DX: F13.230 Sedative, hypnotic or anxiolytic dependence with withdrawal, uncomplicated (principal); F12.20 Cannabis dependence, uncomplicated; F17.210 Nicotine dependence, cigarettes, uncomplicated; F31.9 Bipolar disorder, unspecified; J45.20 Mild intermittent asthma, uncomplicated; G47.00 Insomnia, unspecified
CPT/HCPCS: 36415; 80053; 81003; 85027; 86593; 93005; 93010

== ENCOUNTER 2016-12-31 18:01 | Inpatient (IN) | payer OTHER ==
[2016-12-31] MEDS ORDERED: LOPERAMIDE HCL 2 MG CAPSULE PO PRN (20:15)
[2016-12-31] MEDS ORDERED: MAG HYDROX/AL HYDROX/SIMETH 30 ML UNIT-DOSE CUP PO PRN (20:15)
[2016-12-31] MEDS ORDERED: ACETAMINOPHEN 325 MG TABLET (FP) PO PRN (20:15)
[2016-12-31] MEDS ORDERED: guaiFENesin/D-METHORPHAN HB 10 ML UNIT-DOSE CUPS PO PRN (20:15)
[2016-12-31] MEDS ORDERED: NICOTINE POLACRILEX 2 MG GUM BUC PRN (20:15)
[2016-12-31] MEDS ORDERED: NICOTINE 14 MG/24 HOURS TOPICAL PATCH TD PRN (20:15)
[2016-12-31] MEDS ORDERED: P-EPHED 60MG/TRIPROLIDI 2.5MG TABLET PO PRN (20:15)
[2016-12-31] MEDS ORDERED: IBUPROFEN 400 MG TABLET (FP) PO PRN (20:15)
[2016-12-31] MEDS ORDERED: MAGNESIUM HYDROX 2400MG/30ML ORAL SUSPENSION 30 ML CUP PO PRN (20:15)
[2016-12-31] MEDS ORDERED: MENTHOL/PHENOL 1 EACH UD MM PRN (20:15)
[2016-12-31] MEDS ORDERED: MAGNESIUM CITRATE 300 ML BOTTLE PO PRN (20:15)
--- NOTE | 2016-12-31 20:17 | HP ---
[facility] Rehab Assess/Revision - Admission History Admitted to Rehab from: [facility] Date of Admission to Rehab: 12/31/16 - Findings Detox History & Physical reviewed: Yes Concur with findings: Yes Comments/Additional Findings: TRANSFERRED FROM DETOX TO REHAB ADMISSION PER PROTOCOL
[2016-12-31] MEDS: THIAMINE HCL 100 MG TABLET (FP) PO SCH (21:11)
[2016-12-31] MEDS: diphenhydrAMINE HCL 50 MG CAPSULE PO PRN (21:11)
[2016-12-31] MEDS: OLANZapine 5 MG TABLET PO SCH (22:02)
[2017-01-01] MEDS: PRENATAL VITAMINS W/ FOLIC ACID TABLET (FP) PO SCH (09:46)
--- NOTE | 2017-01-01 11:17 | HP ---
Psychiatrist Admission - Data Date of interview: 01/01/17 Admission source: [facility] Identifying data: This is the second [facility] inpatient rehabilitation admission, first to for thsi 41 year old male father of a 22 year old daughter , resding alone , he is unemployed and supported by [employer] benefits. Medical History: Bronchial Astma, smokes 6 cigarettes a day. Psychiatric History: Patient reports was diagnosed as Schizophrenia, paranoid, first psychiatric hospitalization in 2006 following the of his grandmother , states he had his first psychotic episode,with auditory hallucinations, was paranoid and depressed he overdosed with pills and alcohol, admitted to [facility] [place]. Reports about 10 subsequent psychiatric hospitalizations with most recent in 2016 to [facility] [place], he gets psychiatric servises in [facility] outpatient clinic in the [place], he currently on Zyprexa 5 mg po hs, seen by while in detox and continue treatment. Physical/Sexual Abuse/Trauma History: Denies history of abuse. Vital Signs: Vital Signs - 24 hr 01/01/17 01/01/17 03:30 06:41 Temperature 97.3 F L Pulse Rate 92 H Respiratory 18 18 Rate Blood Pressure 124/92 Allergies/Adverse Reactions: Allergies Allergy/AdvReac Type Severity Reaction Status Date / Time No Known Allergies Allergy Verified 12/27/16 12:09 Date of last physical exam: 12/27/16 Concur with the findings of this exam: Yes - Substance Abuse/Tx History Hx Alcohol Use: No Hx Substance Use: Yes Substance Use Type: Marijuana (2-4 blunts daily), Tranquilizers (xanax 6-8 mg daily) Hx Substance Use Treatment: Yes - Admission Criteria Previous failed treatment: Yes Poor recovery environment: Yes Comorbidities: Yes Lacks judgement: Yes Mental Status Exam - Mental Status Exam Alert and Oriented to: Time, Place, Person Cognitive Function: Good Patient Appearance: Well Groomed Mood: Hopeful Affect: Appropriate, Mood Congruent Patient Behavior: Appropriate, Cooperative Speech Pattern: Clear, Appropriate Voice Loudness: Normal Thought Process: Intact, Goal Oriented Thought Disorder: Not Present, Paranoid Ideation (on and off) Hallucinations: Denies, Auditory (when not on medications ) Suicidal Ideation: Denies Homicidal Ideation: Denies Insight/Judgement: Fair Sleep: Fair Appetite: Fair Muscle strength/Tone: Normal Gait/Station: Normal Psychiatric Findings - Problem List ([place] 1, 2,3) (1) Cannabis dependence Current Visit: No Status: Acute (2) Nicotine dependence Current Visit: No Status: Acute Qualifiers: Nicotine product type: cigarettes Substance use status: uncomplicated Qualified Code(s): F17.210 - Nicotine dependence, cigarettes, uncomplicated (3) Sedative, hypnotic or anxiolytic dependence with withdrawal, uncomplicated Current Visit: No Status: Acute (4) Schizoaffective disorder Current Visit: Yes Status: Acute - Initial Treatment Plan Initial Treatment Plan: will continue his current medications, monitor progress as needed.
[2017-01-01] MEDS: OLANZapine 5 MG TABLET PO SCH (21:11)
[2017-01-01] MEDS: THIAMINE HCL 100 MG TABLET (FP) PO SCH (21:11)
[2017-01-02] MEDS: PRENATAL VITAMINS W/ FOLIC ACID TABLET (FP) PO SCH (10:13)
[2017-01-02] MEDS: OLANZapine 5 MG TABLET PO SCH (21:17)
[2017-01-02] MEDS: THIAMINE HCL 100 MG TABLET (FP) PO SCH (21:17)
[2017-01-03] MEDS: PRENATAL VITAMINS W/ FOLIC ACID TABLET (FP) PO SCH (09:53)
[2017-01-03 16:26] LABS: ALBUMIN 3.8 g/dl (3.4-5.0); ANION GAP 12 (8-16); CALCIUM 8.7 mg/dL (8.5-10.1); CO2 29 mmol/L (21-32); GLUCOSE,RANDOM 134 mg/dL (74-106)
[2017-01-03 16:29] LABS: ALK PHOS 103 U/L (45-117); BILIRUBIN,TOTAL 0.5 mg/dL (0.2-1.0); COCKROFT - GAULT 194.39; CREATININE 0.7 mg/dL (0.7-1.3); SGOT/AST 80 U/L (15-37); SGPT/ALT 184 U/L (12-78)
[2017-01-03 20:31] LABS: HIV 1 & 2 AB NEGATIVE; HIV 1 AGp24 NEGATIVE
[2017-01-03] MEDS: THIAMINE HCL 100 MG TABLET (FP) PO SCH (21:15)
[2017-01-03] MEDS: OLANZapine 5 MG TABLET PO SCH (21:15)
[2017-01-04] MEDS: PRENATAL VITAMINS W/ FOLIC ACID TABLET (FP) PO SCH (09:55)
[2017-01-04] MEDS: THIAMINE HCL 100 MG TABLET (FP) PO SCH (21:13)
[2017-01-04] MEDS: OLANZapine 5 MG TABLET PO SCH (21:13)
[2017-01-04] MEDS: diphenhydrAMINE HCL 50 MG CAPSULE PO PRN (21:14)
[2017-01-05] MEDS: PRENATAL VITAMINS W/ FOLIC ACID TABLET (FP) PO SCH (09:57)
[2017-01-05] MEDS: THIAMINE HCL 100 MG TABLET (FP) PO SCH (21:14)
[2017-01-05] MEDS: OLANZapine 5 MG TABLET PO SCH (21:14)
[2017-01-05] MEDS: diphenhydrAMINE HCL 50 MG CAPSULE PO PRN (21:14)
[2017-01-06] MEDS: PRENATAL VITAMINS W/ FOLIC ACID TABLET (FP) PO SCH (10:19)
[2017-01-06] MEDS: THIAMINE HCL 100 MG TABLET (FP) PO SCH (21:36)
[2017-01-06] MEDS: diphenhydrAMINE HCL 50 MG CAPSULE PO PRN (21:36)
[2017-01-06] MEDS: OLANZapine 5 MG TABLET PO SCH (21:36)
[2017-01-06] MEDS: TOLNAFTATE 1% CREAM 15 GM TUBE TP SCH (21:39)
[2017-01-07] MEDS: TOLNAFTATE 1% CREAM 15 GM TUBE TP SCH ×2 (10:12→21:09)
[2017-01-07] MEDS: PRENATAL VITAMINS W/ FOLIC ACID TABLET (FP) PO SCH (10:12)
[2017-01-07 14:35] LABS: COCKROFT - GAULT 151.19; CREATININE 0.9 mg/dL (0.7-1.3)
[2017-01-07] MEDS: OLANZapine 5 MG TABLET PO SCH (21:09)
[2017-01-07] MEDS: diphenhydrAMINE HCL 50 MG CAPSULE PO PRN (21:09)
[2017-01-07] MEDS: THIAMINE HCL 100 MG TABLET (FP) PO SCH (21:09)
[2017-01-08] MEDS: PRENATAL VITAMINS W/ FOLIC ACID TABLET (FP) PO SCH (09:59)
[2017-01-08] MEDS: TOLNAFTATE 1% CREAM 15 GM TUBE TP SCH ×2 (10:00→21:14)
[2017-01-08] MEDS: THIAMINE HCL 100 MG TABLET (FP) PO SCH (21:14)
[2017-01-08] MEDS: diphenhydrAMINE HCL 50 MG CAPSULE PO PRN (21:14)
[2017-01-08] MEDS: OLANZapine 5 MG TABLET PO SCH (21:14)
[2017-01-09] MEDS: TOLNAFTATE 1% CREAM 15 GM TUBE TP SCH ×2 (10:11→21:17)
[2017-01-09] MEDS: PRENATAL VITAMINS W/ FOLIC ACID TABLET (FP) PO SCH (10:11)
[2017-01-09] MEDS: THIAMINE HCL 100 MG TABLET (FP) PO SCH (21:15)
[2017-01-09] MEDS: OLANZapine 5 MG TABLET PO SCH (21:15)
[2017-01-09] MEDS: diphenhydrAMINE HCL 50 MG CAPSULE PO PRN (21:15)
[2017-01-10] MEDS: TOLNAFTATE 1% CREAM 15 GM TUBE TP SCH ×2 (10:15→21:16)
[2017-01-10] MEDS: PRENATAL VITAMINS W/ FOLIC ACID TABLET (FP) PO SCH (10:15)
[2017-01-10] MEDS: OLANZapine 5 MG TABLET PO SCH (21:15)
[2017-01-10] MEDS: THIAMINE HCL 100 MG TABLET (FP) PO SCH (21:15)
[2017-01-10] MEDS: diphenhydrAMINE HCL 50 MG CAPSULE PO PRN (21:15)
[2017-01-11] MEDS: TOLNAFTATE 1% CREAM 15 GM TUBE TP SCH ×2 (09:51→21:27)
[2017-01-11] MEDS: PRENATAL VITAMINS W/ FOLIC ACID TABLET (FP) PO SCH (09:51)
[2017-01-11] MEDS: THIAMINE HCL 100 MG TABLET (FP) PO SCH (21:25)
[2017-01-11] MEDS: diphenhydrAMINE HCL 50 MG CAPSULE PO PRN (21:25)
[2017-01-11] MEDS: OLANZapine 5 MG TABLET PO SCH (21:25)
[2017-01-12] MEDS: PRENATAL VITAMINS W/ FOLIC ACID TABLET (FP) PO SCH (09:58)
[2017-01-12] MEDS: TOLNAFTATE 1% CREAM 15 GM TUBE TP SCH ×2 (09:59→21:19)
[2017-01-12] MEDS: THIAMINE HCL 100 MG TABLET (FP) PO SCH (21:18)
[2017-01-12] MEDS: OLANZapine 5 MG TABLET PO SCH (21:18)
[2017-01-12] MEDS: diphenhydrAMINE HCL 50 MG CAPSULE PO PRN (21:19)
[2017-01-13] MEDS: PRENATAL VITAMINS W/ FOLIC ACID TABLET (FP) PO SCH (10:35)
[2017-01-13] MEDS: TOLNAFTATE 1% CREAM 15 GM TUBE TP SCH ×2 (10:35→21:21)
[2017-01-13] MEDS: OLANZapine 5 MG TABLET PO SCH (21:19)
[2017-01-13] MEDS: diphenhydrAMINE HCL 50 MG CAPSULE PO PRN (21:19)
[2017-01-13] MEDS: THIAMINE HCL 100 MG TABLET (FP) PO SCH (21:19)
[2017-01-14] MEDS: TOLNAFTATE 1% CREAM 15 GM TUBE TP SCH ×2 (10:02→21:13)
[2017-01-14] MEDS: PRENATAL VITAMINS W/ FOLIC ACID TABLET (FP) PO SCH (10:02)
[2017-01-14] MEDS: diphenhydrAMINE HCL 50 MG CAPSULE PO PRN (21:13)
[2017-01-14] MEDS: OLANZapine 5 MG TABLET PO SCH (21:13)
[2017-01-14] MEDS: THIAMINE HCL 100 MG TABLET (FP) PO SCH (21:13)
[2017-01-15 06:51] VITALS: TEMP 97.9
[2017-01-15] MEDS: TOLNAFTATE 1% CREAM 15 GM TUBE TP SCH ×2 (10:04→21:15)
[2017-01-15] MEDS: PRENATAL VITAMINS W/ FOLIC ACID TABLET (FP) PO SCH (10:04)
--- NOTE | 2017-01-15 15:43 | PN ---
Psychiatric Progress Note Vital Signs: Vital Signs Period Temp Pulse Resp BP Sys/Robles Pulse Ox Last 24 Hr 97.9 F 93 16-18 123/74 Date of Session: 01/15/17 Chief Complaint:: Discharge visit HPI: Patient addressed Cannabis,anxiolytic dependence comorbid with Schizoaffective disorder. ROS: Significant for BA. Current Medications: Active Medications Generic Name Dose Route Start Last Admin Trade Name Freq PRN Reason Stop Dose Admin Acetaminophen 650 mg 12/31/16 20:15 Tylenol - PO Q4H PRN FEVER OR PAIN Al Hydroxide/Mg Hydroxide 30 ml 12/31/16 20:15 Mylanta Oral Suspension - PO Q6H PRN DYSPEPSIA Diphenhydramine HCl 50 mg 12/31/16 20:15 01/14/17 21:13 Benadryl - PO 50 mg HSMR1 PRN Administration FOR ITCHING Eucalyptus/Menthol/Phenol/Sorbitol 1 each 12/31/16 20:15 Cepastat Lozenge - MM Q4H PRN SORE THROAT Guaifenesin 10 ml 12/31/16 20:15 Robitussin Dm - PO Q6H PRN COUGH Ibuprofen 400 mg 12/31/16 20:15 Motrin - PO Q6H PRN PAIN Loperamide HCl 4 mg 12/31/16 20:15 Imodium - PO Q6H PRN DIARRHEA Magnesium Hydroxide 30 ml 12/31/16 20:15 Milk Of Magnesia - PO DAILY PRN CONSTIPATION Nicotine 14 mg 12/31/16 20:15 Nicoderm Patch - TD DAILY PRN WITHDRAWAL(CONT SUBST) Nicotine Polacrilex 2 mg 12/31/16 20:15 Nicorette Gum - BUC Q2H PRN NICOTINE REPLACEMENT RX Olanzapine 5 mg 12/31/16 22:00 01/14/17 21:13 Zyprexa - PO 5 mg HS SHANIA Administration Multivit/Folic Acid/Iron 1 tab 01/01/17 10:00 01/15/17 10:04 Vitamins (Sjr) - PO Not Given DAILY SHANIA Pseudoephedrine/Triprolidine 1 combo 12/31/16 20:15 Actifed - PO TID PRN NASAL CONGESTION Thiamine HCl 100 mg 12/31/16 22:00 01/14/17 21:13 Vitamin B1 - PO 100 mg HS SHANIA Administration Tolnaftate 1 applic 01/06/17 22:00 01/15/17 10:04 Tinactin 1% Cream - TP Not Given BID SHANIA Current Side Effect: No Lab tests ordered: No Lab tests reviewed: Yes Provider note:: The patient will complete this program tomorow 01/16/17.He has met his treatment goals and will continue to addres his issues on outpatient basis.Patient will continue current medications as per plan:Zyprexa 5 mg po hs.scripts for 30 days supply provided. Therapy provided focusing on relapse prevention.Patient identifies areas of difficulties and ways ,supports,coping skills he can utilize to maintain recovery. Supportive therapy provided. Patient is stable for discharge. Total face to face time:: 30 Mental Status Exam - Mental Status Exam Alert and Oriented to: Time, Place, Person Cognitive Function: Grossly Intact Patient Appearance: Well Groomed Mood: Hopeful, Euthymic Affect: Appropriate, Mood Congruent Patient Behavior: Cooperative Speech Pattern: Clear Voice Loudness: Normal Thought Process: Goal Oriented Thought Disorder: Not Present Hallucinations: Denies Suicidal Ideation: Denies Homicidal Ideation: Denies Insight/Judgement: Fair Sleep: Fair Appetite: Good Gait/Station: Normal Psychiatric Treatment Plan - Problem List (1) Nicotine dependence Qualifiers: Nicotine product type: cigarettes Substance use status: uncomplicated Qualified Code(s): F17.210 - Nicotine dependence, cigarettes, uncomplicated (4) Asthma Qualifiers: Asthma severity: mild intermittent Asthma complication type: uncomplicated Qualified Code(s): J45.20 - Mild intermittent asthma, uncomplicated
[2017-01-15] MEDS: THIAMINE HCL 100 MG TABLET (FP) PO SCH (21:15)
[2017-01-15] MEDS: diphenhydrAMINE HCL 50 MG CAPSULE PO PRN (21:15)
[2017-01-15] MEDS: OLANZapine 5 MG TABLET PO SCH (21:15)
[2017-01-16 06:59] VITALS: BP 134/90; PULSE 86
== END 2017-01-16 09:15 | disposition home or self-care (01) | DRG 895 ==
LOC: YASAS 18:01 → Y5N 18:02
PROVIDERS: ADMIT Psychiatry & Neurology Psychiatry; ATTEND Psychiatry & Neurology Psychiatry
PROC: HZ42ZZZ Group Counseling for Substance Abuse Treatment, Cognitive-Behavioral (ICD-10-PCS; principal; 2016-12-31)
DX: F13.20 Sedative, hypnotic or anxiolytic dependence, uncomplicated (principal); F12.20 Cannabis dependence, uncomplicated; F17.210 Nicotine dependence, cigarettes, uncomplicated; F25.9 Schizoaffective disorder, unspecified
CPT/HCPCS: 36415; 80048; 80053; 83036; 84450; 84460; 86803; 87389